=== PATIENT | female | born 2000 | race Hispanic/Latino ===

== ENCOUNTER 2021-04-19 06:56 | Emergency (ER) | payer BC, OTHER ==
[~2021-04-19] VITALS: Ht 157.5 cm; Wt 55.3 kg
[2021-04-19 06:58] VITALS: BP 109/69
[2021-04-19] MEDS ORDERED: LEVO100C4 PO (07:10)
[2021-04-19 07:21] LABS: BASOPHILS % (AUTO) 0.7 % (0.0-5.0); EOSINOPHILS % (AUTO) 3.9 % (0.0-8.0); HEMATOCRIT 39.7 % (36-48); LYMPHOCYTES % (AUTO) 45.2 % (21.0-51.0); MEAN CORPUSCULAR HGB CONC 32.2 g/dL (32.0-36.0); NEUTROPHILS % (AUTO) 40.9 % (40.0-77.0); PLATELET COUNT (AUTO) 267 K/uL (130-400); RED BLOOD CELL COUNT(AUTO) 4.27 MIL/uL (4.00-5.50); RED CELL DISTRIBUTION WIDTH 12.8 % (11.0-15.5); WHITE BLOOD COUNT (AUTO) 7.1 K/uL (4.8-10.8)
[2021-04-19 07:45] LABS: PROTHROMBIN TIME 10.9 SEC (9.6-11.6)
[2021-04-19 07:47] LABS: PARTIAL THROMBOPLASTIN TIME 21.1 SEC (26.3-35.5)
[2021-04-19 07:49] LABS: ALBUMIN 4.4 g/dL (3.5-5.0); BILIRUBIN,TOTAL 0.6 mg/dL (0.2-1.0); CREATININE 0.7 mg/dL (0.5-1.5); POTASSIUM 3.3 mmol/L (3.5-5.1); TOTAL PROTEIN, SERUM 7.5 g/dL (6.0-8.3)
[2021-04-19 07:51] VITALS: BP 111/72
[2021-04-19 09:05] VITALS: BP 99/70
== END 2021-04-19 09:45 | disposition home or self-care (01) ==
LOC: EDH 06:56
DX: S00.83XA Contusion of other part of head, initial encounter (principal); R55 Syncope and collapse; E07.9 Disorder of thyroid, unspecified; W18.39XA Other fall on same level, initial encounter; Y93.89 Activity, other specified; Y92.89 Other specified places as the place of occurrence of the external cause; Y99.8 Other external cause status
CPT/HCPCS: 36415; 70450; 80053; 84443; 84703; 85025; 85610; 85730; 93005